=== PATIENT | female | born 1985 | race Caucasian/White ===

== ENCOUNTER → 2018-11-09 | Outpatient (CLI) | payer OTHER ==
[~2018-11-09] MED LIST: ACHD5005 PO; BENZ56AE TP; CYCL10TA9 PO; DCS100C PO; FRS325T PO; IBP600T1 PO; KETO10TA PO; OXYC-12 PO; PREN1TAB39 PO; TERC20CR5 VG
[2018-11-09 12:57] LABS: BASOPHILS % (AUTO) 0 % (0-10); EOSINOPHILS # (AUTO) 0.1 10^3/uL (0.0-0.3); EOSINOPHILS % (AUTO) 4 % (0-10); HEMATOCRIT 38 % (35-52); HEMOGLOBIN 12.8 G/DL (11.5-16.0); LYMPHOCYTES # (AUTO) 0.5 X 10^3 (1.0-4.0); LYMPHOCYTES % (AUTO) 16 % (12-44); MEAN CORPUSCULAR HEMOGLOBIN 30 PG (25-34); MEAN CORPUSCULAR HGB CONC 33 G/DL (32-36); MEAN CORPUSCULAR VOLUME 90 FL (80-99); MEAN PLATELET VOLUME 11.6 FL (7.4-10.4); MONOCYTES # (AUTO) 0.3 X 10^3 (0.0-1.0); MONOCYTES % (AUTO) 10 % (0-12); NEUTROPHILS % (AUTO) 70 % (42-75); PLATELET COUNT 185 10^3/uL (130-400); RED BLOOD COUNT 4.26 10^6/uL (4.35-5.85); RED CELL DISTRIBUTION WIDTH 12.4 % (10.0-14.5); WHITE BLOOD COUNT 2.9 10^3/uL (4.3-11.0)
[2018-11-09 13:21] LABS: ALANINE AMINOTRANSFERASE 18 U/L (0-55); ALBUMIN 4.4 GM/DL (3.2-4.5); ALKALINE PHOSPHATASE 81 U/L (40-136); BILIRUBIN,TOTAL 0.4 MG/DL (0.1-1.0); BUN/CREATININE RATIO 13; CALCIUM 8.9 MG/DL (8.5-10.1); CARBON DIOXIDE 19 MMOL/L (21-32); CHLORIDE 105 MMOL/L (98-107); CREATININE SERUM 0.86 MG/DL (0.60-1.30); GFR ESTIMATED > 60; GLUCOSE 88 MG/DL (70-105); POTASSIUM 3.9 MMOL/L (3.6-5.0); SODIUM 134 MMOL/L (135-145); TOTAL PROTEIN 7.7 GM/DL (6.4-8.2)
== END ==
LOC: LAB 12:33
PROVIDERS: ATTEND Family Medicine
DX: N39.0 Urinary tract infection, site not specified (principal); E86.0 Dehydration
CPT/HCPCS: 36415; 80053; 85025

== ENCOUNTER → 2019-02-25 | Outpatient (CLI) | payer OTHER ==
--- NOTE | 2019-02-25 13:57 | Diagnostic Imaging Report ---
INDICATION: survey. TECHNIQUE: Multiple real-time grayscale images were obtained over the gravid uterus. COMPARISON: None. FINDINGS: There is a single live fetus in a variable presentation. heart rate was recorded at 160 beats per minute. Placenta is anterior. Amniotic fluid volume is normal. Cervical length is approximately 5 cm. survey demonstrates kidneys, bladder, and stomach to be unremarkable. The brain is unremarkable. There is a four-chamber heart. There is a three-vessel cord with normal insertion. The spine is somewhat limited due to position. Biometrical measurements are as follows: Biparietal 4.74 cm, age 20 weeks 3 days. Head circumference 18.37 cm, age 20 weeks 6 days. Abdominal circumference 16.43 cm, age 21 weeks 4 days. Femur length 3.56 cm, age 21 weeks 2 days. Sonographic estimate age: 21 weeks 1 days. Sonographic estimated date of delivery: 07/07/2019. Estimated Weight: 412 gm (+/- 60 gm). LMP percentile: 30%. heart rate: 160 beats per minute. number: 1 of 1. IMPRESSION: 1. Single live IUP of approximately 21 weeks 1 day gestational age. Estimated date of confinement sonographically is 07/07/2019. 2. survey is unremarkable, although spine is somewhat limited due to position. Followup could be performed. Dictated by: Dictated on workstation # [id number]
== END ==
LOC: RAD 10:31
PROVIDERS: ATTEND Obstetrics & Gynecology
DX: Z36.89 Encounter for other specified antenatal screening (principal); Z3A.21 21 weeks gestation of pregnancy
CPT/HCPCS: 76805

== ENCOUNTER 2019-06-24 10:01 | Inpatient (IN) | payer OTHER ==
[2019-06-24] VITALS (53 sets, daily range): BP systolic 72–153; BP diastolic 62–98
[~2019-06-24] VITALS: Ht 172.7 cm; Wt 78.5 kg
--- NOTE | 2019-06-24 09:41 | NUR ---
CHAVA RONDON presented to unit via ambulatory from office for DEHYDRATION, abd pain. CHAVA RONDON weighed, gowned, voided, and to bed. EFHM and TOCO applied, VS taken. CHAVA RONDON oriented to bed controls, call light, TV, heat, and A/C controls.
[2019-06-24] MEDS ORDERED: ONDANSETRON 4 MG/2 ML (SDV) Z0FRAN IVP PRN (10:45)
[2019-06-24] MEDS ORDERED: LACTATED RINGERS 1,000 ML IV SCH ×2 (10:45→14:20)
[2019-06-24 11:05] LABS: BASOPHILS % (AUTO) 0 % (0-10); EOSINOPHILS % (AUTO) 0 % (0-10); HEMATOCRIT 37 % (35-52); HEMOGLOBIN 12.6 G/DL (11.5-16.0); LYMPHOCYTES # (AUTO) 1.7 X 10^3 (1.0-4.0); LYMPHOCYTES % (AUTO) 17 % (12-44); MEAN CORPUSCULAR HEMOGLOBIN 32 PG (25-34); MEAN CORPUSCULAR HGB CONC 34 G/DL (32-36); MEAN CORPUSCULAR VOLUME 95 FL (80-99); MEAN PLATELET VOLUME 13.2 FL (7.4-10.4); MONOCYTES # (AUTO) 0.6 X 10^3 (0.0-1.0); MONOCYTES % (AUTO) 6 % (0-12); NEUTROPHILS # (AUTO) 7.7 X 10^3 (1.8-7.8); NEUTROPHILS % (AUTO) 76 % (42-75); PLATELET COUNT 154 10^3/uL (130-400); RED CELL DISTRIBUTION WIDTH 13.8 % (10.0-14.5); WHITE BLOOD COUNT 10.1 10^3/uL (4.3-11.0)
[2019-06-24 11:25] LABS: ALANINE AMINOTRANSFERASE 46 U/L (0-55); ALBUMIN 3.1 GM/DL (3.2-4.5); ALKALINE PHOSPHATASE 159 U/L (40-136); BILIRUBIN,TOTAL 0.3 MG/DL (0.1-1.0); BUN/CREATININE RATIO 14; CARBON DIOXIDE 17 MMOL/L (21-32); CHLORIDE 111 MMOL/L (98-107); CREATININE SERUM 0.77 MG/DL (0.60-1.30); GFR ESTIMATED > 60; GLUCOSE 93 MG/DL (70-105); POTASSIUM 4.1 MMOL/L (3.6-5.0); SODIUM 137 MMOL/L (135-145); TOTAL PROTEIN 5.8 GM/DL (6.4-8.2); URIC ACID 5.1 MG/DL (2.6-7.2)
[2019-06-24] MEDS: D5 LR IV SOLUTION 1,000 ML IV SCH ×3 (11:45→22:36)
--- NOTE | 2019-06-24 11:47 | NUR ---
called to check on pt's status. update given. cont to monitor
--- NOTE | 2019-06-24 13:15 | NUR ---
here. monitor tracing reviewed. order received to admit for labor.
[2019-06-24] MEDS ORDERED: SUFENTA 0.6MCG/ML BUPIVA 0.125 100 ML ONE (13:29)
--- NOTE | 2019-06-24 13:36 | NUR ---
SABINE Carrillo here for epidural placement. Procedure explained, consent reviewed and signed by anesthesia. Questions answered to patient's satisfaction. Time out taken to verify correct patient/procedure. 1340- Patient up to side of bed, assisted into sitting position. Betadine prep done x3 and sterile drape applied. 1346-Local done, see anesthesia record. 1349-Test dose given, see anesthesia record for drug and dosage. 1347-Epidural catheter secured in place. Epidural placement complete. 1354- Assisted back into bed, monitors adjusted. Epidural dosed, see anesthesia record. Epidural of Sufenta/Bupvicaine @12cc/hr stated per pump. Patient tolerated procedure well.
[2019-06-24] MEDS: EPIDURAL (SUFENTA 0.6MCG/ML BUPIVA 0.125%) 100 ML BAG EPI SCH ×2 (13:56→20:51)
[2019-06-24] MEDS ORDERED: MISOPROSTOL 100 MCG (CYTOTEC) TAB ONE (14:06)
[2019-06-24] MEDS ORDERED: MISOPROSTOL 100 MCG (CYTOTEC) TAB PO ONE (14:15)
[2019-06-24] MEDS ORDERED: NALOXONE 0.4 MG/ML 1 ML (NARCAN) VIAL IV PRN ×2 (14:30)
[2019-06-24] MEDS ORDERED: ONDANSETRON 4 MG/2 ML (SDV) Z0FRAN IV PRN (14:30)
[2019-06-24] MEDS ORDERED: diphenhydrAMINE 50 MG/ML INJ (BENADRYL) IV PRN (14:30)
[2019-06-24] MEDS ORDERED: METOCLOPRAMIDE INJ 10 MG/2 ML (REGLAN) IV PRN (14:30)
[2019-06-24] MEDS ORDERED: OXYTOCIN/NORMAL SALINE 500 ML IV ONE (18:46)
[2019-06-24] MEDS ORDERED: OXYTOCIN/NORMAL SALINE 500 ML IV SCH ×2 (19:19→22:05)
[2019-06-24] MEDS ORDERED: MINERAL OIL CONCENTRATE 99.9% 15 ML UDC ONE (19:24)
[2019-06-24] MEDS ORDERED: LIDOCAINE/EPI 2% 1:200,00 (XYLOCAINE) 10 ML VIAL ONE (19:24)
--- NOTE | 2019-06-24 22:08 | OB Labor & Delivery Record ---
Vag Delivery Note Vag Delivery Note Date of Delivery: 06/24/19 Preoperative Diagnosis: Jennifer Sin is a (34 /Para 3 /2 ,Gestational Age 38 weeks with gestational hypertension and history of preeclampsia. Postoperative Diagnosis: Same Surgeon: FREDDIE HOFFMAN Banquet Food Server: [] Anesthesia: epidural Delivery Type: vagnal Findings: Viable female infant, apgars 9/9, weight 7#7oz Lacerations: none Intact placenta with 3 vessel cord. No nuchal cord, body cord or shoulder dystocia Estimated Blood Loss: 150 ml Complications: None Condition: Stable Description of Procedure: The patient is a 34 year old female who presented for induction of labor. She was admitted and informed consent was obtained. Her labor course was remarkable for AROM and augmentation. She progressed to complete dilatation and began to push. She was then set up for delivery. The infant's head was delivered atraumatically in the OA position. The shoulders and remainder of the infant's body were then delivered without difficulty. Upon delivery, the head was held below the level of the perineum and the mouth and nares were bulb suctioned. The cord was doubly clamped and cut and the was handed off to the pediatric staff. An intact placenta with 3-vessel cord delivered via Josh and there was found to be minimal bleeding.~ Vigorous fundal massage was performed and the fundus was found to be firm. IV oxytocin was given. Examination of the vagina and perineum revealed no laceration. Following the delivery, sponge, instrument and needle counts were correct. Mom and baby were both in stable condition in the labor suite. Vitals - Labs Vital Signs - I&O Vital Signs Date Time Temp Pulse Resp B/P (MAP) Pulse Ox O2 Delivery O2 Flow Rate FiO2 06/24/19 19:00 62 18 127/86 (100) 100 Room Air 06/24/19 18:45 56 18 113/62 (79) 100 Room Air 06/24/19 18:30 59 18 100 Room Air 06/24/19 18:15 62 18 116/79 (91) 99 Room Air 06/24/19 18:00 62 18 114/80 (91) 99 Room Air 06/24/19 17:45 53 18 110/78 (89) 98 Room Air 06/24/19 17:30 49 18 111/66 (81) 97 Room Air 06/24/19 17:15 58 18 116/71 (86) 98 Room Air 06/24/19 17:00 97.5 54 18 120/77 (91) 100 Room Air 06/24/19 16:45 49 18 123/72 (89) 100 Room Air 06/24/19 16:30 56 18 122/78 (93) 100 Room Air 06/24/19 16:15 55 18 120/76 (91) 100 Room Air 06/24/19 16:00 59 18 128/66 (86) 100 Room Air 06/24/19 15:45 65 18 122/87 (99) 100 Room Air 06/24/19 15:30 52 18 119/72 (88) 98 Room Air 06/24/19 15:15 53 18 117/73 (88) 99 Room Air 06/24/19 15:00 64 18 121/84 (96) 100 Room Air 06/24/19 14:45 64 18 121/84 (96) 100 Room Air 06/24/19 14:30 73 18 126/93 (104) 100 Room Air 06/24/19 14:15 84 18 122/72 (89) 98 Room Air 06/24/19 14:10 97 18 119/76 (90) 98 Room Air 06/24/19 14:05 91 18 122/77 (92) 98 Room Air 06/24/19 14:00 82 18 127/74 (91) 100 Room Air 06/24/19 13:55 98.1 77 18 123/74 (90) 99 Room Air 06/24/19 13:50 104 18 132/86 (101) 100 Room Air 06/24/19 13:45 67 18 129/86 (100) 100 Room Air 06/24/19 13:40 80 18 138/98 (111) 100 Room Air 06/24/19 13:20 76 18 130/82 (98) Room Air 06/24/19 12:50 69 18 125/82 (96) Room Air 06/24/19 12:20 69 18 125/87 (100) Room Air 06/24/19 11:50 86 18 134/82 (99) Room Air 06/24/19 11:35 65 18 121/77 (92) Room Air 06/24/19 09:50 98.2 74 18 132/85 (101) Room Air Labs Laboratory Tests 06/24/19 10:45: White Blood Count 10.1, Red Blood Count 3.91L, Hemoglobin 12.6, Hematocrit 37, Mean Corpuscular Volume 95, Mean Corpuscular Hemoglobin 32, Mean Corpuscular Hemoglobin Concent 34, Red Cell Distribution Width 13.8, Platelet Count 154, Mean Platelet Volume 13.2H, Neutrophils (%) (Auto) 76H, Lymphocytes (%) (Auto) 17, Monocytes (%) (Auto) 6, Eosinophils (%) (Auto) 0, Basophils (%) (Auto) 0, Ne utrophils # (Auto) 7.7, Lymphocytes # (Auto) 1.7, Monocytes # (Auto) 0.6, Eosinophils # (Auto) 0.0, Basophils # (Auto) 0.0, Sodium Level 137, Potassium Level 4.1, Chloride Level 111H, Carbon Dioxide Level 17L, Anion Gap 9, Blood Urea Nitrogen 11, Creatinine 0.77, Estimat Glomerular Filtration Rate > 60, BUN/Creatinine Ratio 14, Glucose Level 93, Uric Acid 5.1, Calcium Level 9.0, Corrected Calcium 9.7, Total Bilirubin 0.3, Aspartate Amino Transf (AST/SGOT) 71H, Alanine Aminotransferase (ALT/SGPT) 46, Alkaline Phosphatase 159H, Lactate Dehydrogenase 244H, Total Protein 5.8L, Albumin 3.1L FREDDIE HOFFMAN DO Jun 24, 2019 22:08
[2019-06-24] MEDS ORDERED: WITCH HAZEL(TUCKS) 40 EA JAR TOP PRN (22:15)
[2019-06-24] MEDS ORDERED: TETANUS,DIPTH,PERTUSS P/F (BOOSTRIX) 0.5 ML VIAL IM ONE (22:15)
[2019-06-24] MEDS ORDERED: BENZOCAINE/MENTHOL (DERMOPLAST) 56 ML CAN TP PRN (22:15)
[2019-06-24] MEDS ORDERED: MEASLES,MUMPS,RUBELLA 1 EA INJ SQ ONE (22:15)
[2019-06-25] VITALS: BP 120/72
[2019-06-25] MEDS: IBUPROFEN 600 MG (MOTRIN) TAB PO SCH ×4 (00:08→17:56)
[2019-06-25 00:15] VITALS: BP 121/70
[2019-06-25 01:30] VITALS: BP 120/71
[2019-06-25 04:02] VITALS: BP 110/72
[2019-06-25] MEDS: ACETAMINOPHEN 500 MG TAB (TYLENOL) PO SCH ×2 (04:02→13:04)
[2019-06-25] MEDS: D5 LR IV SOLUTION 1,000 ML IV SCH (05:10)
[2019-06-25 05:54] LABS: BASOPHILS % (AUTO) 0 % (0-10); EOSINOPHILS # (AUTO) 0.1 10^3/uL (0.0-0.3); EOSINOPHILS % (AUTO) 1 % (0-10); HEMATOCRIT 37 % (35-52); HEMOGLOBIN 12.2 G/DL (11.5-16.0); LYMPHOCYTES # (AUTO) 2.5 X 10^3 (1.0-4.0); LYMPHOCYTES % (AUTO) 19 % (12-44); MEAN CORPUSCULAR HEMOGLOBIN 32 PG (25-34); MEAN CORPUSCULAR HGB CONC 33 G/DL (32-36); MEAN CORPUSCULAR VOLUME 96 FL (80-99); MEAN PLATELET VOLUME 13.5 FL (7.4-10.4); MONOCYTES # (AUTO) 0.8 X 10^3 (0.0-1.0); MONOCYTES % (AUTO) 6 % (0-12); NEUTROPHILS # (AUTO) 9.9 X 10^3 (1.8-7.8); NEUTROPHILS % (AUTO) 74 % (42-75); PLATELET COUNT 118 10^3/uL (130-400); RED CELL DISTRIBUTION WIDTH 13.6 % (10.0-14.5); WHITE BLOOD COUNT 13.4 10^3/uL (4.3-11.0)
[2019-06-25] MEDS ORDERED: CATHETER FLUSH 10 ML SYR IV SCH (06:00)
[2019-06-25 06:24] LABS: ALANINE AMINOTRANSFERASE 27 U/L (0-55); ALBUMIN 2.5 GM/DL (3.2-4.5); ALKALINE PHOSPHATASE 124 U/L (40-136); BILIRUBIN,TOTAL 0.4 MG/DL (0.1-1.0); BUN/CREATININE RATIO 12; CARBON DIOXIDE 17 MMOL/L (21-32); CHLORIDE 113 MMOL/L (98-107); CREATININE SERUM 0.75 MG/DL (0.60-1.30); GFR ESTIMATED > 60; GLUCOSE 64 MG/DL (70-105); POTASSIUM 3.9 MMOL/L (3.6-5.0); SODIUM 138 MMOL/L (135-145); TOTAL PROTEIN 4.6 GM/DL (6.4-8.2)
[2019-06-25] MEDS ORDERED: PRENATAL VITAMIN 1 EA TAB PO SCH (07:00)
[2019-06-25] MEDS ORDERED: DOCUSATE SODIUM 100 MG (COLACE) CAP PO SCH (09:00)
[2019-06-25 09:45] VITALS: BP 113/67
--- NOTE | 2019-06-25 09:45 | NUR ---
Initial shift assessment completed, see interventions for further.
--- NOTE | 2019-06-25 12:19 | Postpartum Progress Note ---
Note Note Day # 1 s/p . LAbs much better next time. LFTs improving Subjective: Patient is without complaints. Ambulating, voiding. Tolerating a regular diet without nausea or vomiting. Normal lochia. Pain is well controlled with oral pain medications. breast feeding. Objective: Laboratory Tests Test 06/25/19 05:25 Range/Units White Blood Count 13.4 H 4.3-11.0 10^3/uL Red Blood Count 3.80 L 4.35-5.85 10^6/uL Hemoglobin 12.2 11.5-16.0 G/DL Hematocrit 37 35-52 % Mean Corpuscular Volume 96 80-99 FL Mean Corpuscular Hemoglobin 32 25-34 PG Mean Corpuscular Hemoglobin Concent 33 32-36 G/DL Red Cell Distribution Width 13.6 10.0-14.5 % Platelet Count 118 L 130-400 10^3/uL Mean Platelet Volume 13.5 H 7.4-10.4 FL Neutrophils (%) (Auto) 74 42-75 % Lymphocytes (%) (Auto) 19 12-44 % Monocytes (%) (Auto) 6 0-12 % Eosinophils (%) (Auto) 1 0-10 % Basophils (%) (Auto) 0 0-10 % Neutrophils # (Auto) 9.9 H 1.8-7.8 X 10^3 Lymphocytes # (Auto) 2.5 1.0-4.0 X 10^3 Monocytes # (Auto) 0.8 0.0-1.0 X 10^3 Eosinophils # (Auto) 0.1 0.0-0.3 10^3/uL Basophils # (Auto) 0.0 0.0-0.1 10^3/uL Sodium Level 138 135-145 MMOL/L Potassium Level 3.9 3.6-5.0 MMOL/L Chloride Level 113 H 98-107 MMOL/L Carbon Dioxide Level 17 L 21-32 MMOL/L Anion Gap 8 5-14 MMOL/L Blood Urea Nitrogen 9 7-18 MG/DL Creatinine 0.75 0.60-1.30 MG/DL Estimat Glomerular Filtration Rate > 60 BUN/Creatinine Ratio 12 Glucose Level 64 L 70-105 MG/DL Calcium Level 8.0 L 8.5-10.1 MG/DL Corrected Calcium 9.2 8.5-10.1 MG/DL Total Bilirubin 0.4 0.1-1.0 MG/DL Aspartate Amino Transf (AST/SGOT) 41 H 5-34 U/L Alanine Aminotransferase (ALT/SGPT) 27 0-55 U/L Alkaline Phosphatase 124 40-136 U/L Lactate Dehydrogenase 183 125-220 U/L Total Protein 4.6 L 6.4-8.2 GM/DL Albumin 2.5 L 3.2-4.5 GM/DL Laboratory Tests Test 06/25/19 05:25 Range/Units White Blood Count 13.4 H 4.3-11.0 10^3/uL Red Blood Count 3.80 L 4.35-5.85 10^6/uL Hemoglobin 12.2 11.5-16.0 G/DL Hematocrit 37 35-52 % Mean Corpuscular Volume 96 80-99 FL Mean Corpuscular Hemoglobin 32 25-34 PG Mean Corpuscular Hemoglobin Concent 33 32-36 G/DL Red Cell Distribution Width 13.6 10.0-14.5 % Platelet Count 118 L 130-400 10^3/uL Mean Platelet Volume 13.5 H 7.4-10.4 FL Neutrophils (%) (Auto) 74 42-75 % Lymphocytes (%) (Auto) 19 12-44 % Monocytes (%) (Auto) 6 0-12 % Eosinophils (%) (Auto) 1 0-10 % Basophils (%) (Auto) 0 0-10 % Neutrophils # (Auto) 9.9 H 1.8-7.8 X 10^3 Lymphocytes # (Auto) 2.5 1.0-4.0 X 10^3 Monocytes # (Auto) 0.8 0.0-1.0 X 10^3 Eosinophils # (Auto) 0.1 0.0-0.3 10^3/uL Basophils # (Auto) 0.0 0.0-0.1 10^3/uL Sodium Level 138 135-145 MMOL/L Potassium Level 3.9 3.6-5.0 MMOL/L Chloride Level 113 H 98-107 MMOL/L Carbon Dioxide Level 17 L 21-32 MMOL/L Anion Gap 8 5-14 MMOL/L Blood Urea Nitrogen 9 7-18 MG/DL Creatinine 0.75 0.60-1.30 MG/DL Estimat Glomerular Filtration Rate > 60 BUN/Creatinine Ratio 12 Glucose Level 64 L 70-105 MG/DL Calcium Level 8.0 L 8.5-10.1 MG/DL Corrected Calcium 9.2 8.5-10.1 MG/DL Total Bilirubin 0.4 0.1-1.0 MG/DL Aspartate Amino Transf (AST/SGOT) 41 H 5-34 U/L Alanine Aminotransferase (ALT/SGPT) 27 0-55 U/L Alkaline Phosphatase 124 40-136 U/L Lactate Dehydrogenase 183 125-220 U/L Total Protein 4.6 L 6.4-8.2 GM/DL Albumin 2.5 L 3.2-4.5 GM/DL Physical Exam: General - Alert and oriented, no apparent distress Abdomen - Soft, appropriately tender to palpation, non-distended, fundus firm at umbilicus Extremities - no edema, negative Michael's bilaterally [ Assessment: 1. post- day # 1, status post spontaneous vaginal delivery. Recovering well, hemodynamically stable 2. Gestational hypertension/preeclampsia, improving Plan: Routine care. Encourage breast feeding. Encourage ambulation. Ferrous sulfate supplementation. Plan for discharge soon Vitals - Labs Vital Signs - I&O Vital Signs Date Time Temp Pulse Resp B/P (MAP) Pulse Ox O2 Delivery O2 Flow Rate FiO2 06/25/19 09:45 98.3 72 18 113/67 (82) 97 Room Air 06/25/19 04:02 99.0 93 18 110/72 (85) 98 Room Air 06/25/19 01:30 98.5 60 18 120/71 (87) 98 Room Air 06/25/19 00:15 98.0 57 18 121/70 (87) Room Air 06/25/19 00:00 69 18 120/72 (88) Room Air 06/24/19 23:45 98.1 51 18 121/73 (89) Room Air 06/24/19 23:15 66 18 133/77 (95) Room Air 06/24/19 23:00 98.2 67 18 131/77 (95) Room Air 06/24/19 22:45 72 18 141/79 (99) Room Air 06/24/19 22:30 98.8 81 18 137/66 (89) 99 Room Air 06/24/19 22:15 82 18 133/75 (94) Room Air 06/24/19 22:00 97.4 73 18 138/69 (92) 99 Room Air 06/24/19 21:45 79 18 153/93 (113) 99 Room Air 06/24/19 21:30 64 18 131/94 (106) 99 Room Air 06/24/19 21:15 75 18 124/93 (103) 99 Room Air 06/24/19 21:05 97.2 70 18 136/89 (105) 99 Room Air 06/24/19 21:00 56 18 124/82 (96) 99 Room Air 06/24/19 20:55 51 18 116/71 (86) 99 Room Air 06/24/19 20:50 47 18 118/75 (89) 100 Room Air 06/24/19 20:45 53 18 126/82 (97) 100 Room Air 06/24/19 20:30 53 18 127/76 (93) 100 Room Air 06/24/19 20:15 59 18 125/80 (95) 99 Room Air 06/24/19 20:00 96 18 120/74 (89) 99 Room Air 06/24/19 19:45 53 18 119/74 (89) 98 Room Air 06/24/19 19:30 46 18 118/68 (85) 99 Room Air 06/24/19 19:15 97.8 53 18 131/72 (91) 100 Room Air 06/24/19 19:00 62 18 127/86 (100) 100 Room Air 06/24/19 18:45 56 18 113/62 (79) 100 Room Air 06/24/19 18:30 59 18 100 Room Air 06/24/19 18:15 62 18 116/79 (91) 99 Room Air 06/24/19 18:00 62 18 114/80 (91) 99 Room Air 06/24/19 17:45 53 18 110/78 (89) 98 Room Air 06/24/19 17:30 49 18 111/66 (81) 97 Room Air 06/24/19 17:15 58 18 116/71 (86) 98 Room Air 06/24/19 17:00 97.5 54 18 120/77 (91) 100 Room Air 06/24/19 16:45 49 18 123/72 (89) 100 Room Air 06/24/19 16:30 56 18 122/78 (93) 100 Room Air 06/24/19 16:15 55 18 120/76 (91) 100 Room Air 06/24/19 16:00 59 18 128/66 (86) 100 Room Air 06/24/19 15:45 65 18 122/87 (99) 100 Room Air 06/24/19 15:30 52 18 119/72 (88) 98 Room Air 06/24/19 15:15 53 18 117/73 (88) 99 Room Air 06/24/19 15:00 64 18 121/84 (96) 100 Room Air 06/24/19 14:45 64 18 121/84 (96) 100 Room Air 06/24/19 14:30 73 18 126/93 (104) 100 Room Air 06/24/19 14:15 84 18 122/72 (89) 98 Room Air 06/24/19 14:10 97 18 119/76 (90) 98 Room Air 06/24/19 14:05 91 18 122/77 (92) 98 Room Air 06/24/19 14:00 82 18 127/74 (91) 100 Room Air 06/24/19 13:55 98.1 77 18 123/74 (90) 99 Room Air 06/24/19 13:50 104 18 132/86 (101) 100 Room Air 06/24/19 13:45 67 18 129/86 (100) 100 Room Air 06/24/19 13:40 80 18 138/98 (111) 100 Room Air 06/24/19 13:20 76 18 130/82 (98) Room Air 06/24/19 12:50 69 18 125/82 (96) Room Air 06/24/19 12:20 69 18 125/87 (100) Room Air I & O 06/25/19 07:00 Intake Total 2900 ml Output Total 100 ml Balance 2800 ml Labs Laboratory Tests 06/25/19 05:25: White Blood Count 13.4H, Red Blood Count 3.80L, Hemoglobin 12.2, Hematocrit 37, Mean Corpuscular Volume 96, Mean Corpuscular Hemoglobin 32, Mean Corpuscular Hemoglobin Concent 33, Red Cell Distribution Width 13.6, Platelet Count 118L, Mean Platelet Volume 13.5H, Neutrophils (%) (Auto) 74, Lymphocytes (%) (Auto) 19, Monocytes (%) (Auto) 6, Eosinophils (%) (Auto) 1, Basophils (%) (Auto) 0, Neutrophils # (Auto) 9.9H, Lymphocytes # (Auto) 2.5, Monocytes # (Auto) 0.8, Eosinophils # (Auto) 0.1, Basophils # (Auto) 0.0, Sodium Level 138, Potassium Level 3.9, Chloride Level 113H, Carbon Dioxide Level 17L, Anion Gap 8, Blood Urea Nitrogen 9, Creatinine 0.75, Estimat Glomerular Filtration Rate > 60, BUN/Creatinine Ratio 12, Glucose Level 64L, Calcium Level 8.0L, Corrected Calcium 9.2, Total Bilirubin 0.4, Aspartate Amino Transf (AST/SGOT) 41H, Alanine Aminotransferase (ALT/SGPT) 27, Alkaline Phosphatase 124, Lactate Dehydrogenase 183, Total Protein 4.6L, Albumin 2.5L FREDDIE HOFFMAN DO Jun 25, 2019 12:19
--- NOTE | 2019-06-25 14:54 | Anesthesia-Regional Post-Op ---
Regional Patient Condition Mental Status: Alert, Oriented x3 Circulation: Same as Pre-Op Headache: Absent Sensation: Full Recovery Motor Block: Absent Post Op Complications Complications None Follow Up Care/Instructions Patient Instructions None needed. Anesthesia/Patient Condition Patient is doing well, no complaints, stable vital signs, no apparent adverse anesthesia problems. No complications reported per nursing. GARDENIA BOWLES CRNA Jun 25, 2019 14:54
--- NOTE | 2019-06-25 17:42 | NUR ---
called. may dismiss pt to rooming in status per request. dismissal order received.
[2019-06-25 17:56] VITALS: BP 118/76
--- NOTE | 2019-06-25 18:35 | NUR ---
stork meal served.
--- NOTE | 2019-06-29 10:54 | Physician Query-Final Dx ---
STACI HERNÁNDEZ 06/29/19 1054: Final Diagnosis Give Final Diagnosis Please give Final Diagnosis FREDDIE HOFFMAN DO 07/26/19 1145: Final Diagnosis Give Final Diagnosis 38 4/7 weeks preeclampsia/gestational hypertension vaginal delivery induction epidural STACI HERNÁNDEZ Jun 29, 2019 10:54 FREDDIE HOFFMAN DO Jul 26, 2019 11:45
--- OUTSIDE RECORDS SUMMARY | 2019-07-16 14:06 | XMS REPORT | CCD ---
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 Phone PP Unavailable CCM Unavailable Summary Purpose Interface Exchange Insurance Providers Payer name Policy type / Coverage type Covered alliance party ID Effective Begin Date Effective End Date Blue Cross Blue Shield [facility] Blue Cross/Blue Shield [id number] Unknown Family history Mother Diagnosis Age At Onset Diabetes mellitus Type 2 Unknown Father Diagnosis Age At Onset Hypercholesterolemia Unknown Myocardial infarction Unknown Hypertension Unknown Social History Social History Element Codes Description Effective Dates Marital status Unknown [place] 11/09/2018 Number of children Unknown 2 11/09/2018 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 smoker 11/09/2018 Alcohol history Unknown occasionally drinks alcohol 11/09/2018 Frequency of drinks SNOMED CT: 953592822 Drinks rarely 11/09/2018 Allergies, Adverse Reactions, Alerts Substance Reaction Codes Entered Date Inactivated Date Status * NO KNOWN DRUG ALLERGIES Unknown 11/09/2018 No Inactive Date Active Past Medical History Illness Codes Condition Status Onset Date Resolved Date Dehydration ICD-9: 276.51 ICD-10: E86.0 Active 11/09/2018 Unknown Dizziness and giddiness ICD-9: 780.4 ICD-10: R42 Active 11/09/2018 Unknown Dysuria ICD-9: 788.1 ICD-10: R30.0 Active 11/09/2018 Unknown Urinary tract infection, site not specified ICD-9: 599.0 ICD-10: N39.0 Active 11/09/2018 Unknown Problems Condition Codes Effective Dates Condition Status Dehydration ICD-9: 276.51 ICD-10: E86.0 11/09/2018 Active Dizziness and giddiness ICD-9: 780.4 ICD-10: R42 11/09/2018 Active Dysuria ICD-9: 788.1 ICD-10: R30.0 11/09/2018 Active Urinary tract infection, site not specified ICD-9: 599.0 ICD-10: N39.0 11/09/2018 Active Medications Medication Codes Instructions Start Date Stop Date Status Fill Instructions Keflex 500 mg capsule RxNorm: 224126 1 Capsule(s) PO QID 11/09/2018 11/15/2018 Active please dispense generic - have her get Accuflora 14billion units - take it twice daily while taking the antibiotic - thanks Medication Administered No Medication Administered data Immunizations No Immunization data Assessments Condition Codes Effective Dates Dizziness and giddiness ICD-10: R42 ICD-9: 780.4 11/09/2018 Dysuria ICD-10: R30.0 ICD-9: 788.1 11/09/2018 Urinary tract infection, site not specified ICD-10: N39.0 ICD-9: 599.0 11/09/2018 Dehydration ICD-10: E86.0 ICD-9: 276.51 11/09/2018 Reason For Visit Reason For Visit Effective Dates Notes rash 11/09/2018 Results Observation Observation Code Item Item Code Result Date Culture Urine 922805 URINE CULTURE SEE NOTES 11/13/2018 Urine Culture Ucult Complete >100,000 col/ml aerobic growth sent to ref lab 11/11/2018 Review of Systems System Result Effective Dates Constitutional recent illness 11/09/2018 Constitutional No chills 11/09/2018 Constitutional fatigue 11/09/2018 Constitutional fever 11/09/2018 Constitutional No insomnia 11/09/2018 Constitutional malaise 11/09/2018 Eyes No vision change 11/09/2018 Ears/Nose/Throat/Neck dizziness 11/09/2018 Ears/Nose/Throat/Neck No dysphagia 11/09/2018 Ears/Nose/Throat/Neck No headache 11/09/2018 Ears/Nose/Throat/Neck No hearing loss 11/09/2018 Ears/Nose/Throat/Neck No nasal allergies 11/09/2018 Ears/Nose/Throat/Neck No sore throat 11/09/2018 Cardiovascular No chest pain/pressure 11/09/2018 Cardiovascular No dyspnea 11/09/2018 Cardiovascular No edema 11/09/2018 Cardiovascular No exercise intolerance 11/09/2018 Cardiovascular fatigue 11/09/2018 Cardiovascular No near-syncope/dizziness 11/09/2018 Respiratory No chest tightness 11/09/2018 Respiratory No cough 11/09/2018 Respiratory No dyspnea 11/09/2018 Respiratory No pedal edema 11/09/2018 Gastrointestinal No abdominal pain 11/09/2018 Gastrointestinal No constipation 11/09/2018 Gastrointestinal No diarrhea 11/09/2018 Gastrointestinal No gastroesophageal reflux 11/09/2018 Gastrointestinal No nausea 11/09/2018 Genitourinary/Nephrology No dysuria 11/09/2018 Genitourinary/Nephrology No nocturia 11/09/2018 Genitourinary/Nephrology No urinary incontinence 11/09/2018 Musculoskeletal No stiffness 11/09/2018 Musculoskeletal No swelling 11/09/2018 Musculoskeletal No muscle weakness 11/09/2018 Musculoskeletal No myalgias 11/09/2018 Dermatologic No rash 11/09/2018 Dermatologic No sores 11/09/2018 Neurologic dizziness 11/09/2018 Neurologic No headache 11/09/2018 Psychiatric No anxiety 11/09/2018 Psychiatric No depression 11/09/2018 Ears/Nose/Throat/Neck No sinus congestion 11/09/2018 Physical Exam Exam Name System Name Item Name Status Result Effective Dates Notes Full Exam - General 1994 Constitutional general appearance Development: well developed 11/09/2018 None Full Exam - General 1994 Constitutional general appearance Development: appears stated age 1211/09/2018 None Full Exam - General 1994 Constitutional general appearance Hygiene/Attention to Grooming: good hygiene 11/09/2018 None Full Exam - General 1994 Eyes conjunctiva/eyelids Overall: conjunctiva clear 11/09/2018 None Full Exam - General 1994 Eyes conjunctiva/eyelids Overall: cornea clear 11/09/2018 None Full Exam - General 1994 Eyes conjunctiva/eyelids Overall: eyelids normal 11/09/2018 None Full Exam - General 1994 Eyes pupils and irises Overall: pupils equal, round, reactive to light and accomodation 11/09/2018 None Full Exam - General 1994 Ears/Nose/Throat otoscopic exam Overall: external auditory canals clear 11/09/2018 None Full Exam - General 1994 Ears/Nose/Throat otoscopic exam Overall: tympanic membranes clear 11/09/2018 None Full Exam - General 1994 Ears/Nose/Throat lips/teeth/gingiva Overall: benign lips 11/09/2018 None Full Exam - General 1994 Ears/Nose/Throat lips/teeth/gingiva Overall: normal dentition 11/09/2018 None Full Exam - General 1994 Ears/Nose/Throat oral cavity/pharynx/larynx Overall: oral mucosa clear 11/09/2018 None Full Exam - General 1994 Ears/Nose/Throat oral cavity/pharynx/larynx Overall: hypopharynx benign 11/09/2018 None Full Exam - General 1994 Ears/Nose/Throat oral cavity/pharynx/larynx Overall: no masses 11/09/2018 None Full Exam - General 1994 Respiratory auscultation Overall: breath sounds clear bilaterally 11/09/2018 None Full Exam - General 1994 Respiratory respiratory effort/rhythm Overall: no retractions 11/09/2018 None Full Exam - General 1994 Respiratory respiratory effort/rhythm Overall: normal rate 11/09/2018 None Full Exam - General 1994 Cardiovascular extremities Overall: no clubbing 11/09/2018 None Full Exam - General 1994 Cardiovascular auscultation of heart Overall: regular rate 11/09/2018 None Full Exam - General 1994 Cardiovascular auscultation of heart Overall: normal heart sounds 11/09/2018 None Full Exam - General 1994 Abdomen abdominal exam Overall: no tenderness 11/09/2018 None Full Exam - General 1994 Abdomen abdominal exam Overall: normal bowel sounds 11/09/2018 None Full Exam - General 1994 Musculoskeletal spine, ribs and pelvis Overall: spine benign 11/09/2018 None Full Exam - General 1994 Musculoskeletal spine, ribs and pelvis Overall: sacroiliac joint benign 11/09/2018 None Full Exam - General 1994 Musculoskeletal spine, ribs and pelvis Overall: good posture 11/09/2018 None Full Exam - General 1994 Musculoskeletal head and neck Overall: head atraumatic 11/09/2018 None Full Exam - General 1994 Musculoskeletal head and neck Overall: cervical spine benign 11/09/2018 None Full Exam - General 1994 Neurologic cranial nerves Overall: crainial nerves 2 - 12 grossly intact 11/09/2018 None Full Exam - General 1994 Psychiatric orientation/consciousness Overall: oriented to person, place and time 11/09/2018 None Full Exam - General 1994 Psychiatric mood and affect Overall: normal mood and affect 11/09/2018 None Full Exam - General 1994 Ears/Nose/Throat oral cavity/pharynx/larynx Oropharynx: erythema 11/09/2018 None Full Exam - General 1994 Lymphatic neck nodes Overall: shotty lymphadenopathy 11/09/2018 None Full Exam - General 1994 Integument inspection of skin Rash/Lesions: maculopapular rash across abdomen, chest , to upper thighs 11/09/2018 None Procedures Procedure Codes Date URINALYSIS NONAUTO W/O SCOPE CPT-4: 03967 11/09/2018 Vital Signs Date Vital 11/09/2018 Blood Pressure 1: 120/70 Code: 8480-6 BMI: 23.8 Code: 29804-4 Heart Rate 1: 100 bpm Height: 5'7" SpO2: 97% Weight: 152 lbs Functional Status No Functional Status data History of Present Illness Symptom Name Status Result Effective Date Notes Location in the RLQ 11/09/2018 None Location in the LLQ 11/09/2018 None Quality aching 11/09/2018 None Onset of Symptom 5 days ago 11/09/2018 None Limitation on Activities moderately limits activities 11/09/2018 None Triggers no known associated factors 11/09/2018 None Pertinent Findings fever 11/09/2018 last fever this morning of 101F Advance Directives No Advance Directive data Encounters Encounter Performer Location Codes Date () OFFICE VISIT, [facility] - LEVEL 3 Diagnosis: Dysuria[ICD10: R30.0] Diagnosis: Urinary tract infection, site not specified[ICD10: N39.0] Diagnosis: Dehydration[ICD10: E86.0] Diagnosis: Dizziness and giddiness[ICD10: R42] Ninfa Grullon MD, [facility] CPT- 4: 70347 11/09/2018 Plan of Care Planned Activity Notes Codes Status Date Visit Plan: UTI - pt with positive urinalysis - culture sent if appropriate. Antibiotic electronically prescribed to pt's pharmacy of choice. Pt to call if symptoms do not improve. URI - Pt advised to increase flui ds, vitamin C. Discussed natural and expected course of this diagnosis and need to alert me if symptoms do not follow expected course, or if any worse. RX sent to patient's pharmacy. keflex 500mg qid sent to pharmacy - probiotic as well. pt to go to hospital for labs. dehydration - push fluids 11/09/2018 Appointment: Ninfa Grullon WPtel: [address] [place], [place] [id number] New Patient 11/09/2018 Patient Education: Patient Medication Summary Completed 11/09/2018 Patient Education: Patient Medication Summary Completed 11/09/2018 Instructions Comment . UTI - pt with positive urinalysis - culture sent if appropriate. Antibiotic electronically prescribed to pt's pharmacy of choice. Pt to call if symptoms do not improve. URI - Pt advised to increase fluids, vitamin C. Discussed natural and expected course of this diagnosis and need to alert me if symptoms do not follow expected course, or if any worse. RX sent to patient's pharmacy. keflex 500mg qid sent to pharmacy - probiotic as well. pt to go to hospital for labs. dehydration - push fluids
--- OUTSIDE RECORDS SUMMARY | 2019-07-16 14:06 | XMS REPORT | CCD ---
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 Phone PP Unavailable CCM Unavailable Summary Purpose Interface Exchange Insurance Providers Payer name Policy type / Coverage type Covered democrat ID Effective Begin Date Effective End Date Blue Cross Blue Shield [facility] Blue Cross/Blue Shield [id number] Unknown Family history Mother Diagnosis Age At Onset Diabetes mellitus Type 2 Unknown Father Diagnosis Age At Onset Hypercholesterolemia Unknown Myocardial infarction Unknown Hypertension Unknown Social History Social History Element Codes Description Effective Dates Marital status Unknown [place] 11/09/2018 Number of children Unknown 2 11/09/2018 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 11/09/2018 Alcohol history Unknown occasionally drinks alcohol 11/09/2018 Frequency of drinks SNOMED CT: 055271661 Drinks rarely 11/09/2018 Allergies, Adverse Reactions, Alerts [...] Fill Instructions Keflex 500 mg capsule RxNorm: 208686 1 Capsule(s) PO QID 11/09/2018 11/15/2018 Active [...] Observation Code Item Item Code Result Date Urine Culture Ucult Complete >100,000 col/ml aerobic [...] Codes Date URINALYSIS NONAUTO W/O SCOPE CPT-4: 47685 11/09/2018 Vital Signs Date Vital 11/09/2018 Blood Pressure 1: 120/70 Code: 8480-6 BMI: 23.8 Code: 80247-2 Heart Rate 1: 100 bpm Height: 5'7" [...] Performer Location Codes Date () OFFICE VISIT, [facility] - LEVEL 3 Diagnosis: Dysuria[ICD10: R30.0] Diagnosis: Urinary tract infection, site not specified[ICD10: N39.0] Diagnosis: Dehydration[ICD10: E86.0] Diagnosis: Dizziness and giddiness[ICD10: R42] Ninfa Grullon MD, [facility] CPT- 4: 08148 11/09/2018 Plan of Care Planned Activity Notes [...] push fluids 11/09/2018 Appointment: Ninfa Grullon WPtel: [address] [place], [place] [id number] New Patient 11/09/2018 Patient Education: Patient Medication [...]
--- OUTSIDE RECORDS SUMMARY | 2019-07-16 14:07 | XMS REPORT | Continuity of Care Document ---
Author Organization Unknown Address Unknown Phone Unavailable Allergies Active Description Code Type Severity Reaction Onset Reported/Identified Relationship to Patient Clinical Status Yes No Known Drug Allergies [id number] Drug Allergy Unknown N/A 03/29/2012 Medications There is no data. Problems Date Dx Coded Attending Type Code Diagnosis Diagnosed By 12/21/2011 Ot 644.03 03/29/2012 Ot 644.03 04/20/2012 Ot 642.41 04/20/2012 Ot 664.11 04/20/2012 Ot V27.0 07/31/2013 SHANIA JANE DO Ot 642.33 08/07/2013 FREDDIE HOFFMAN DO Ot 642.31 08/07/2013 FREDDIE HOFFMAN DO Ot 642.41 08/07/2013 FREDDIE HOFFMAN DO Ot 652.81 08/07/2013 FREDDIE HOFFMAN DO Ot V27.0 10/29/2013 SHANIA JANE DO Ot 791.0 10/03/2014 Ot 462 10/03/2014 Ot 791.0 10/11/2014 Ot 462 10/11/2014 Ot 791.0 03/08/2016 ANAND LAIRD DO Ot F41.9 ANXIETY DISORDER, UNSPECIFIED 03/08/2016 ANAND LAIRD DO Ot S46.812A STRAIN OF MUSC/FASC/TEND AT LDR/UP ARM 03/08/2016 ANAND LAIRD DO Ot X58.XXXA EXPOSURE TO OTHER SPECIFIED FACTORS, INI 03/08/2016 ANAND LAIRD DO Ot Y92.[address] [facility] NON-[facility]IT[facility] (PRIVATE 03/08/2016 AANND LAIRD DO Ot Y93.84 ACTIVITY, SLEEPING 03/08/2016 ANAND LAIRD DO Ot Y99.8 OTHER EXTERNAL CAUSE STATUS 03/15/2016 ANAND LAIRD DO Ot F41.9 ANXIETY DISORDER, UNSPECIFIED 03/15/2016 ANAND LAIRD DO Ot S46.812A STRAIN OF MUSC/FASC/TEND AT SHLDR/UP ARM 03/15/2016 ANAND LAIRD DO Ot X58.XXXA EXPOSURE TO OTHER SPECIFIED FACTORS, INI 03/15/2016 ANAND LAIRD DO Ot Y92.[address] IN [facility] NON-INSTIT[facility] (PRIVATE 03/15/2016 ANAND LAIRD DO Ot Y93.84 ACTIVITY, SLEEPING 03/15/2016 ANAND LAIRD DO Ot Y99.8 OTHER EXTERNAL CAUSE STATUS 03/15/2016 ANDRADE SYKES MD Ot E28.2 POLYCYSTIC OVARIAN SYNDROME 03/15/2016 ANDRADE SYKES MD Ot R07.9 CHEST PAIN, UNSPECIFIED 03/15/2016 ANDRADE SYKES MD Ot R42 DIZZINESS AND GIDDINESS 03/25/2016 ANDRADE SYKES MD Ot E28.2 POLYCYSTIC OVARIAN SYNDROME 03/25/2016 ANDRADE SYKES MD Ot R07.9 CHEST PAIN, UNSPECIFIED 03/25/2016 ANDRADE SYKES MD Ot R42 DIZZINESS AND GIDDINESS 04/12/2016 ANDRADE SYKES MD Ot E28.2 POLYCYSTIC OVARIAN SYNDROME 04/12/2016 ANDRADE SYKES MD Ot R07.9 CHEST PAIN, UNSPECIFIED 04/12/2016 ANDRADE SYKES MD Ot R42 DIZZINESS AND GIDDINESS 12/27/2016 ANDRADE SYKES MD Ot E28.2 POLYCYSTIC OVARIAN SYNDROME 12/27/2016 ANDRADE SYKES MD Ot R07.9 CHEST PAIN, UNSPECIFIED 12/27/2016 ANDRADE SYKES MD Ot R42 DIZZINESS AND GIDDINESS 12/27/2016 ANDRADE SYKES MD Ot E28.2 POLYCYSTIC OVARIAN SYNDROME 12/27/2016 ANDRADE SYKES MD Ot R07.9 CHEST PAIN, UNSPECIFIED 12/27/2016 ANDRADE SYKES MD Ot R42 DIZZINESS AND GIDDINESS 01/21/2017 ANDRADE SYKES MD Ot E28.2 POLYCYSTIC OVARIAN SYNDROME 01/21/2017 ANDRADE SYKES MD Ot R07.9 CHEST PAIN, UNSPECIFIED 01/21/2017 ANDRADE SYKSE MD Ot R42 DIZZINESS AND GIDDINESS 01/21/2017 ANDRADE SYKES MD Ot E28.2 POLYCYSTIC OVARIAN SYNDROME 01/21/2017 ONEL KAUR, ANDRADE Emanuel Ot R07.9 CHEST PAIN, UNSPECIFIED 01/21/2017 ANDRADE SYKES MD Ot R42 DIZZINESS AND GIDDINESS 01/28/2017 ANDRADE SYKES MD Ot E28.2 POLYCYSTIC OVARIAN SYNDROME 01/28/2017 ANDRADE SYKES MD Ot R07.9 CHEST PAIN, UNSPECIFIED 01/28/2017 ANDRADE SYKES MD Ot R42 DIZZINESS AND GIDDINESS 01/28/2017 ANDRADE SYKES MD Ot E28.2 POLYCYSTIC OVARIAN SYNDROME 01/28/2017 ANDRADE SYKES MD Ot R07.9 CHEST PAIN, UNSPECIFIED 01/28/2017 ANDRADE SYKES MD Ot R42 DIZZINESS AND GIDDINESS 03/17/2017 ANDRADE SYKES MD Ot E28.2 POLYCYSTIC OVARIAN SYNDROME 03/17/2017 ANDRADE SYKES MD Ot R07.9 CHEST PAIN, UNSPECIFIED 03/17/2017 ANDRADE SYKES MD Ot R42 DIZZINESS AND GIDDINESS 03/17/2017 ANDRADE SYKES MD Ot E28.2 POLYCYSTIC OVARIAN SYNDROME 03/17/2017 ANDRADE SYKES MD Ot R07.9 CHEST PAIN, UNSPECIFIED 03/17/2017 ANDRADE SYKES MD Ot R42 DIZZINESS AND GIDDINESS 11/09/2018 ANDRADE SYKES MD Ot E28.2 POLYCYSTIC OVARIAN SYNDROME 11/09/2018 ANDRADE SYKES MD Ot R07.9 CHEST PAIN, UNSPECIFIED 11/09/2018 ANDRADE SYKES MD Ot R42 DIZZINESS AND GIDDINESS 11/09/2018 ANDRADE SYKES MD Ot E28.2 POLYCYSTIC OVARIAN SYNDROME 11/09/2018 ANDRADE SYKES MD Ot R07.9 CHEST PAIN, UNSPECIFIED 11/09/2018 ANDRADE SYKES MD Ot R42 DIZZINESS AND GIDDINESS 11/13/2018 KAILYN ARRINGTON MD Ot E86.0 DEHYDRATION 11/13/2018 KAILYN ARRINGTON MD Ot N39.0 URINARY TRACT INFECTION, SITE NOT SPECIF 02/26/2019 FREDDIE HOFFMAN DO Ot Z36.89 ENCOUNTER FOR OTHER SPECIFIED 02/26/2019 FREDDIE HOFFMAN DO Ot Z3A.21 21 WEEKS GESTATION OF 03/03/2019 HOFFMANGodfrey SPEAR FREDDIE C Ot Z36.89 ENCOUNTER FOR OTHER SPECIFIED 03/03/2019 HOFFMAN DO FREDDIE C Ot Z3A.21 21 WEEKS GESTATION OF 05/31/2019 ANDRADE SYKES MD Ot E28.2 POLYCYSTIC OVARIAN SYNDROME 05/31/2019 ANDRADE SYKES MD Ot R07.9 CHEST PAIN, UNSPECIFIED 05/31/2019 ANDRADE SYKES MD Ot R42 DIZZINESS AND GIDDINESS 05/31/2019 ANDRADE SYKES MD Ot E28.2 POLYCYSTIC OVARIAN SYNDROME 05/31/2019 ANDRADE SKYES MD Ot R07.9 CHEST PAIN, UNSPECIFIED 05/31/2019 ANDRADE SYKES MD Ot R42 DIZZINESS AND GIDDINESS 05/31/2019 NURY KAUR, KAILYN A Ot E86.0 DEHYDRATION 05/31/2019 NURY KAUR, KAILYN A Ot N39.0 URINARY TRACT INFECTION, SITE NOT SPECIF 05/31/2019 YASMIN SPEAR FREDDIE C Ot Z36.89 ENCOUNTER FOR OTHER SPECIFIED 05/31/2019 HOFFMAN DO FREDDIE C Ot Z3A.21 21 WEEKS GESTATION OF 06/24/2019 ANDRADE SYKES MD Ot E28.2 POLYCYSTIC OVARIAN SYNDROME 06/24/2019 ANDRADE SYKES MD Ot R07.9 CHEST PAIN, UNSPECIFIED 06/24/2019 ANDRADE SYKES MD Ot R42 DIZZINESS AND GIDDINESS 06/24/2019 ANDRADE SYKES MD Ot E28.2 POLYCYSTIC OVARIAN SYNDROME 06/24/2019 ANDRADE SYKES MD Ot R07.9 CHEST PAIN, UNSPECIFIED 06/24/2019 ANDRADE SYKES MD Ot R42 DIZZINESS AND GIDDINESS 06/24/2019 NURY KAUR, KAILYN A Ot E86.0 DEHYDRATION 06/24/2019 KAILYN ARRINGTON MD A Ot N39.0 URINARY TRACT INFECTION, SITE NOT SPECIF 06/24/2019 YASMIN SPEAR FREDDIE C Ot Z36.89 ENCOUNTER FOR OTHER SPECIFIED 06/24/2019 HOFFMAN DO FREDDIE C Ot Z3A.21 21 WEEKS GESTATION OF 06/24/2019 ANDRADE SYKES MD Ot E28.2 POLYCYSTIC OVARIAN SYNDROME 06/24/2019 ANDRADE SYKES MD Ot R07.9 CHEST PAIN, UNSPECIFIED 06/24/2019 ANDRADE SYKES MD Ot R42 DIZZINESS AND GIDDINESS 06/24/2019 ANDRADE SYKES MD Ot E28.2 POLYCYSTIC OVARIAN SYNDROME 06/24/2019 ANDRADE SYKES MD Ot R07.9 CHEST PAIN, UNSPECIFIED 06/24/2019 ANDRADE SYKES MD Ot R42 DIZZINESS AND GIDDINESS 06/24/2019 KAILYN ARRINGTON MD Ot E86.0 DEHYDRATION 06/24/2019 KAILYN ARRINGTON MD Ot N39.0 URINARY TRACT INFECTION, SITE NOT SPECIF 06/24/2019 HOFFMAN DO FREDDIE C Ot Z36.89 ENCOUNTER FOR OTHER SPECIFIED 06/24/2019 HOFFMAN DO FREDDIE C Ot Z3A.21 21 WEEKS GESTATION OF 06/25/2019 YASMIN SPEAR FREDDIE C Ot Z33.1 STATE, INCIDENTAL 06/27/2019 ANDRADE SYKES MD Ot E28.2 POLYCYSTIC OVARIAN SYNDROME 06/27/2019 ANDRADE SYKES MD Ot R07.9 CHEST PAIN, UNSPECIFIED 06/27/2019 ANDRADE SYKES MD Ot R42 DIZZINESS AND GIDDINESS 06/27/2019 ANDRADE SYKES MD Ot E28.2 POLYCYSTIC OVARIAN SYNDROME 06/27/2019 ANDRADE SYKES MD Ot R07.9 CHEST PAIN, UNSPECIFIED 06/27/2019 ANDRADE SYKES MD Ot R42 DIZZINESS AND GIDDINESS 06/27/2019 KAILYN ARRINGTON MD Ot E86.0 DEHYDRATION 06/27/2019 KAILYN ARRINGTON MD Ot N39.0 URINARY TRACT INFECTION, SITE NOT SPECIF 06/27/2019 HOFFMAN DO FREDDIE C Ot Z36.89 ENCOUNTER FOR OTHER SPECIFIED 06/27/2019 YASMIN SPEAR FREDDIE C Ot Z3A.21 21 WEEKS GESTATION OF Procedures There is no data. Results Test Result Range Complete blood count (CBC) with automated white blood cell (WBC) differential - 11/09/18 12:49 Blood leukocytes automated count (number/volume) 2.9 10*3/uL 4.3-11.0 Blood erythrocytes automated count (number/volume) 4.26 10*6/uL 4.35-5.85 Venous blood hemoglobin measurement (mass/volume) 12.8 g/dL 11.5-16.0 Blood hematocrit (volume fraction) 38 % 35-52 Automated erythrocyte mean corpuscular volume 90 [foz_us] 80-99 Automated erythrocyte mean corpuscular hemoglobin (mass per erythrocyte) 30 pg 25-34 Automated erythrocyte mean corpuscular hemoglobin concentration measurement (mass/volume) 33 g/dL 32-36 Automated erythrocyte distribution width ratio 12.4 % 10.0- 14.5 Automated blood platelet count (count/volume) 185 10*3/uL 130-400 Automated blood platelet mean volume measurement 11.6 [foz_us] 7.4-10.4 Automated blood neutrophils/100 leukocytes 70 % 42-75 Automated blood lymphocytes/100 leukocytes 16 % 12-44 Blood monocytes/100 leukocytes 10 % 0-12 Automated blood eosinophils/100 leukocytes 4 % 0-10 Automated blood basophils/100 leukocytes 0 % 0-10 Blood neutrophils automated count (number/volume) 2.0 10*3 1.8-7.8 Blood lymphocytes automated count (number/volume) 0.5 10*3 1.0-4.0 Blood monocytes automated count (number/volume) 0.3 10*3 0.0- 1.0 Automated eosinophil count 0.1 10*3/uL 0.0-0.3 Automated blood basophil count (count/volume) 0.0 10*3/uL 0.0-0.1 Comprehensive metabolic panel - 11/09/18 12:49 Serum or plasma sodium measurement (moles/volume) 134 mmol/L 135-145 Serum or plasma potassium measurement (moles/volume) 3.9 mmol/L 3.6-5.0 Serum or plasma chloride measurement (moles/volume) 105 mmol/L 98-107 Carbon dioxide 19 mmol/L 21-32 Serum or plasma anion gap determination (moles/volume) 10 mmol/L 5-14 Serum or plasma urea nitrogen measurement (mass/volume) 11 mg/dL 7-18 Serum or plasma creatinine measurement (mass/volume) 0.86 mg/dL 0.60-1.30 Serum or plasma urea nitrogen/creatinine mass ratio 13 NRG Serum or plasma creatinine measurement with calculation of estimated glomerular filtration rate > NRG Serum or plasma glucose measurement (mass/volume) 88 mg/dL 70-105 Serum or plasma calcium measurement (mass/volume) 8.9 mg/dL 8.5-10.1 Serum or plasma total bilirubin measurement (mass/volume) 0.4 mg/dL 0.1-1.0 Serum or plasma alkaline phosphatase measurement (enzymatic activity/volume) 81 U/L 40-136 Serum or plasma aspartate aminotransferase measurement (enzymatic activity/volume) 27 U/L 5-34 Serum or plasma alanine aminotransferase measurement (enzymatic activity/volume) 18 U/L 0-55 Serum or plasma protein measurement (mass/volume) 7.7 g/dL 6.4-8.2 Serum or plasma albumin measurement (mass/volume) 4.4 g/dL 3.2-4.5 CALCIUM CORRECTED 8.6 mg/dL 8.5-10.1 [id number] - 06/24/19 10:45 [id number] SPECIMEN AVAILABLE BANNER Complete blood count (CBC) with automated white blood cell (WBC) differential - 06/24/19 10:45 Blood leukocytes automated count (number/volume) 10.1 10*3/uL 4.3-11.0 Blood erythrocytes automated count (number/volume) 3.91 10*6/uL 4.35-5.85 Venous blood hemoglobin measurement (mass/volume) 12.6 g/dL 11.5-16.0 Blood hematocrit (volume fraction) 37 % 35-52 Automated erythrocyte mean corpuscular volume 95 [foz_us] 80-99 Automated erythrocyte mean corpuscular hemoglobin (mass per erythrocyte) 32 pg 25-34 Automated erythrocyte mean corpuscular hemoglobin concentration measurement (mass/volume) 34 g/dL 32-36 Automated erythrocyte distribution width ratio 13.8 % 10.0- 14.5 Automated blood platelet count (count/volume) 154 10*3/uL 130-400 Automated blood platelet mean volume measurement 13.2 [foz_us] 7.4-10.4 Automated blood neutrophils/100 leukocytes 76 % 42-75 Automated blood lymphocytes/100 leukocytes 17 % 12-44 Blood monocytes/100 leukocytes 6 % 0-12 Automated blood eosinophils/100 leukocytes 0 % 0-10 Automated blood basophils/100 leukocytes 0 % 0-10 Blood neutrophils automated count (number/volume) 7.7 10*3 1.8-7.8 Blood lymphocytes automated count (number/volume) 1.7 10*3 1.0-4.0 Blood monocytes automated count (number/volume) 0.6 10*3 0.0- 1.0 Automated eosinophil count 0.0 10*3/uL 0.0-0.3 Automated blood basophil count (count/volume) 0.0 10*3/uL 0.0-0.1 Comprehensive metabolic panel - 06/24/19 10:45 Serum or plasma sodium measurement (moles/volume) 137 mmol/L 135-145 Serum or plasma potassium measurement (moles/volume) 4.1 mmol/L 3.6-5.0 Serum or plasma chloride measurement (moles/volume) 111 mmol/L 98-107 Carbon dioxide 17 mmol/L 21-32 Serum or plasma anion gap determination (moles/volume) 9 mmol/L 5-14 Serum or plasma urea nitrogen measurement (mass/volume) 11 mg/dL 7-18 Serum or plasma creatinine measurement (mass/volume) 0.77 mg/dL 0.60-1.30 Serum or plasma urea nitrogen/creatinine mass ratio 14 NRG Serum or plasma creatinine measurement with calculation of estimated glomerular filtration rate > NRG Serum or plasma glucose measurement (mass/volume) 93 mg/dL 70-105 Serum or plasma calcium measurement (mass/volume) 9.0 mg/dL 8.5-10.1 Serum or plasma total bilirubin measurement (mass/volume) 0.3 mg/dL 0.1-1.0 Serum or plasma alkaline phosphatase measurement (enzymatic activity/volume) 159 U/L 40-136 Serum or plasma aspartate aminotransferase measurement (enzymatic activity/volume) 71 U/L 5-34 Serum or plasma alanine aminotransferase measurement (enzymatic activity/volume) 46 U/L 0-55 Serum or plasma protein measurement (mass/volume) 5.8 g/dL 6.4-8.2 Serum or plasma albumin measurement (mass/volume) 3.1 g/dL 3.2-4.5 CALCIUM CORRECTED 9.7 mg/dL 8.5-10.1 Serum or plasma uric acid measurement (mass/volume) - 06/24/19 10:45 Serum or plasma uric acid measurement (mass/volume) 5.1 mg/dL 2.6-7.2 Serum ragweed IgE antibody assay - 06/24/19 10:45 Serum ragweed IgE antibody assay 244 U/L 125-220 Complete blood count (CBC) with automated white blood cell (WBC) differential - 06/25/19 05:25 Blood leukocytes automated count (number/volume) 13.4 10*3/uL 4.3-11.0 Blood erythrocytes automated count (number/volume) 3.80 10*6/uL 4.35-5.85 Venous blood hemoglobin measurement (mass/volume) 12.2 g/dL 11.5-16.0 Blood hematocrit (volume fraction) 37 % 35-52 Automated erythrocyte mean corpuscular volume 96 [foz_us] 80-99 Automated erythrocyte mean corpuscular hemoglobin (mass per erythrocyte) 32 pg 25-34 Automated erythrocyte mean corpuscular hemoglobin concentration measurement (mass/volume) 33 g/dL 32-36 Automated erythrocyte distribution width ratio 13.6 % 10.0- 14.5 Automated blood platelet count (count/volume) 118 10*3/uL 130-400 Automated blood platelet mean volume measurement 13.5 [foz_us] 7.4-10.4 Automated blood neutrophils/100 leukocytes 74 % 42-75 Automated blood lymphocytes/100 leukocytes 19 % 12-44 Blood monocytes/100 leukocytes 6 % 0-12 Automated blood eosinophils/100 leukocytes 1 % 0-10 Automated blood basophils/100 leukocytes 0 % 0-10 Blood neutrophils automated count (number/volume) 9.9 10*3 1.8-7.8 Blood lymphocytes automated count (number/volume) 2.5 10*3 1.0-4.0 Blood monocytes automated count (number/volume) 0.8 10*3 0.0- 1.0 Automated eosinophil count 0.1 10*3/uL 0.0-0.3 Automated blood basophil count (count/volume) 0.0 10*3/uL 0.0-0.1 Comprehensive metabolic panel - 06/25/19 05:25 Serum or plasma sodium measurement (moles/volume) 138 mmol/L 135-145 Serum or plasma potassium measurement (moles/volume) 3.9 mmol/L 3.6-5.0 Serum or plasma chloride measurement (moles/volume) 113 mmol/L 98-107 Carbon dioxide 17 mmol/L 21-32 Serum or plasma anion gap determination (moles/volume) 8 mmol/L 5-14 Serum or plasma urea nitrogen measurement (mass/volume) 9 mg/dL 7-18 Serum or plasma creatinine measurement (mass/volume) 0.75 mg/dL 0.60-1.30 Serum or plasma urea nitrogen/creatinine mass ratio 12 NRG Serum or plasma creatinine measurement with calculation of estimated glomerular filtration rate > NRG Serum or plasma glucose measurement (mass/volume) 64 mg/dL 70-105 Serum or plasma calcium measurement (mass/volume) 8.0 mg/dL 8.5-10.1 Serum or plasma total bilirubin measurement (mass/volume) 0.4 mg/dL 0.1-1.0 Serum or plasma alkaline phosphatase measurement (enzymatic activity/volume) 124 U/L 40-136 Serum or plasma aspartate aminotransferase measurement (enzymatic activity/volume) 41 U/L 5-34 Serum or plasma alanine aminotransferase measurement (enzymatic activity/volume) 27 U/L 0-55 Serum or plasma protein measurement (mass/volume) 4.6 g/dL 6.4-8.2 Serum or plasma albumin measurement (mass/volume) 2.5 g/dL 3.2-4.5 CALCIUM CORRECTED 9.2 mg/dL 8.5-10.1 Serum ragweed IgE antibody assay - 06/25/19 05:25 Serum ragweed IgE antibody assay 183 U/L 125-220 Encounters ACCT No. Visit Date/Time Discharge Status Pt. Type Provider Facility Loc./Unit Complaint [id number] 06/29/2019 08:00:00 06/29/2019 23:59:59 CLS Preadmit FREDDIE HOFFMAN DO INDUCTION [id number] 06/24/2019 13:15:00 06/25/2019 19:20:00 DIS Inpatient FREDDIE HOFFMAN DO [facility] LDRP ELEVATED LIVER ENZYMES [id number] 02/25/2019 10:31:00 02/25/2019 23:59:59 CLS Outpatient FREDDIE HOFFMAN DO [facility] RAD 17 WEEKS GESTATION OF [id number] 11/09/2018 12:33:00 11/09/2018 23:59:59 CLS Outpatient KAILYN ARRINGTON MD [facility] LAB UTI, DEHYDRATION [id number] 03/22/2016 14:14:00 03/22/2016 23:59:59 CLS Outpatient ANDRADE SYKES MD [facility] CARD CHEST PAIN SYNDROME,DIZZINESS,PCOS [id number] 03/14/2016 09:53:00 03/14/2016 23:59:59 CLS Outpatient ONEL KAUR, ANDRADE Emanuel [facility] RAD CHEST PAIN SYNDROME,DIZZINESS,PCOS [id number] 03/08/2016 04:03:00 03/08/2016 05:28:00 DIS Emergency EITAN ANAND SPEAR [facility] ER LEFT SHOULDER BLADE PAIN,NAUSEA,SOA [id number] 07/31/2013 12:20:00 10/29/2013 00:01:00 DIS Outpatient SHANIA AJNE DO [facility] LAB [id number] 08/06/2013 06:00:00 08/07/2013 14:35:00 DIS Inpatient YASMIN SPEAR FREDDIE [place] [facility] [id number] 07/31/2013 10:03:00 07/31/2013 12:56:00 DIS Inpatient ADAMSHANIA NUÑEZ DO [facility] [id number] 10/30/2013 00:00:00 Document Registration [id number] 04/17/2012 11:47:00 Document Registration [id number] 03/29/2012 09:37:00 Document Registration [id number] 12/26/2011 14:30:00 Document Registration [id number] 12/21/2011 13:04:00 Document Registration [id number] 11/09/2018 11:52:28 11/09/2018 23:59:59 CLS Outpatient
--- OUTSIDE RECORDS SUMMARY | 2019-07-16 14:07 | XMS REPORT | Continuity of Care Document ---
Author Author [facility] Organization [facility] Address Unknown Phone Unavailable Care Team Providers [facility] Executive Director Name Role Phone FREDDIE HOFFMAN DO PP Insurance Providers Payer Name Policy Number Subscriber Name Relationship [employer] [facility] [place] [id number] Chava Rondon 01 Self / Same As Patient Advance Directives Directive Response Recorded Date Advance Directives N 08/06/13 6:01am Health Care Power of Exhaust Worker N 08/06/13 6:01am Organ Donor Y 08/06/13 6:01am Problems No Known Problems or Medical conditions. Family History History Response Recorded Date/Time Hx Family Cancer N 08/06/13 6:02am Hx Family Cardiac Disorders Y 08/06/13 6:02am Hx Family Hypertension Y PT'S DAD 08/06/13 6:02am Social History History Response Recorded Date/Time Alcohol Use Denies Use 08/06/13 12:20pm Recreational Drug Use N 08/06/13 6:02am Recent Infectious Disease Exposure N 08/06/13 12:20pm Sexually Transmitted Disease N 08/06/13 12:20pm HIV/AIDS N 08/06/13 12:20pm Allergies, Adverse Reactions, Alerts Allergen Type Severity Reaction Last Updated No Known Drug Allergies 03/29/12 Medications Medication Dose Units Route Sig Qty Days Ibuprofen (Motrin) 600 Mg PO Q6H 40 Docusate Sodium (Colace Cap) 100 Mg PO BID 20 Benzocaine/Menthol (Dermoplast [place]) 56 Ml TP UD PRN 1 Ferrous Sulfate (Feosol Tab) 325 Mg PO DAILY 30 Acetaminophen/Hydrocodone Bitart (Lorcet 5/325 Mg) 1 Tab PO Q4H PRN 10 Vits W-Ca,Fe,Fa(<1MG) () 1 Each PO DAILY Oxycodone Hcl/Acetaminophen (Percocet 5-325 Mg Tablet) 1 - 2 Each PO q 4-6hrs as needed Ibuprofen (Motrin) 600 Mg PO q 6hrs as needed Immunizations Name Given Type influenza, split (incl. purified surface antigen) 08/06/13 A Response Recorded Date/Time Status not known Unknown Results Test Date Result Interp. Ref. Range Alanine Aminotransferase (ALT/SGPT) July 31, 2013 10:30am 22 U/L L 30-65 Albumin April 19, 2012 6:05am 1.9 G/DL L 3.4-5.0 Alkaline Phosphatase April 19, 2012 6:05am 214 U/L H 50-136 Aspartate Amino Transf (AST/SGOT) July 31, 2013 10:30am 20 U/L N 15-37 BUN/Creatinine Ratio April 19, 2012 6:05am 9 - Basophils # (Auto) April 20, 2012 5:52am 0.1 10^3/uL N 0.0-0.1 Basophils (%) (Auto) April 20, 2012 5:52am 1 % N 0-10 Blood Urea Nitrogen April 19, 2012 6:05am 9 MG/DL N 7-18 Body Surface Area (Creat Clear) August 01, 2013 11:30am 1.88 - Calcium Level April 19, 2012 6:05am 7.9 MG/DL L 8.5-10.1 Carbon Dioxide Level April 19, 2012 6:05am 20 MMOL/L L 21-32 Chloride Level April 19, 2012 6:05am 107 MMOL/L N 101-110 Creatinine August 01, 2013 11:30am 0.9 MG/DL N 0.6-1.3 Creatinine Clearance August 01, 2013 11:30am 100 ML/MIN N 80-110 Eosinophils # (Auto) April 20, 2012 5:52am 0.2 10^3/uL N 0.0-0.3 Eosinophils (%) (Auto) April 20, 2012 5:52am 2 % N 0-10 Glucose Level April 19, 2012 6:05am 66 MG/DL L 74-106 Group A Streptococcus Screen December 26, 2011 2:40pm NEGATIVE - Hematocrit July 31, 2013 10:30am 34 % L 35-52 Hemoglobin July 31, 2013 10:30am 11.4 G/DL L 11.5-16.0 Lactate Dehydrogenase April 19, 2012 6:05am 212 U/L N 115-218 Lymphocytes # (Auto) April 20, 2012 5:52am 2.9 X 10^3 N 1.0-4.0 Lymphocytes (%) (Auto) April 20, 2012 5:52am 23 % N 12-44 Mean Corpuscular Hemoglobin July 31, 2013 10:30am 30 PG N 25-34 Mean Corpuscular Hemoglobin Concent July 31, 2013 10:30am 34 G/DL N 32-36 Mean Corpuscular Volume July 31, 2013 10:30am 88 FL N 80-99 Mean Platelet Volume July 31, 2013 10:30am 13.2 FL H 7.4-10.4 Monocytes # (Auto) April 20, 2012 5:52am 0.7 X 10^3 N 0.0-1.0 Monocytes (%) (Auto) April 20, 2012 5:52am 5 % N 0-12 Neutrophils # (Auto) April 20, 2012 5:52am 8.6 X 10^3 H 1.8-7.8 Neutrophils (%) (Auto) April 20, 2012 5:52am 69 % N 42-75 Patient Height Inches (Creat Clear) August 01, 2013 11:30am 67 INCHES - Patient Weight Pounds (Creat Clear) August 01, 2013 11:30am 168 LBS - Platelet Count July 31, 2013 10:30am 200 10^3/uL N 130-400 Potassium Level April 19, 2012 6:05am 3.9 MMOL/L N 3.6-5.0 Red Blood Count July 31, 2013 10:30am 3.81 10^6/uL L 4.35-5.85 Red Cell Distribution Width July 31, 2013 10:30am 12.7 % N 10.0-14.5 Sodium Level April 19, 2012 6:05am 137 MMOL/L N 135-145 Total Bilirubin April 19, 2012 6:05am 0.1 MG/DL N 0.0-1.0 Total Protein April 19, 2012 6:05am 5.1 G/DL L 6.4-8.2 Uric Acid July 31, 2013 10:30am 4.1 MG/DL N 2.6-7.2 Urine Bacteria April 17, 2012 12:00pm FEW H - Urine Bilirubin April 17, 2012 12:00pm NEGATIVE - Urine Casts April 17, 2012 12:00pm NONE - Urine Clarity April 17, 2012 12:00pm CLEAR - Urine Collection Time August 01, 2013 11:30am 24 HRS - Urine Color April 17, 2012 12:00pm YELLOW - Urine Creatinine August 01, 2013 11:30am 104.3 MG/DL N 30-125 Urine Creatinine 24 Hour August 01, 2013 11:30am 1408 MG/24H N 800-1700 Urine Crystals April 17, 2012 12:00pm NONE - Urine Culture Indicated April 17, 2012 12:00pm YES - Urine Glucose (UA) April 17, 2012 12:00pm NEGATIVE - Urine Ketones April 17, 2012 12:00pm NEGATIVE - Urine Leukocyte Esterase April 17, 2012 12:00pm 1+ H - Urine Mucus April 17, 2012 12:00pm NEGATIVE - Urine Nitrite April 17, 2012 12:00pm NEGATIVE - Urine Protein April 17, 2012 12:00pm 1+ H - Urine RBC April 17, 2012 12:00pm RARE /HPF - Urine Specific [place] April 17, 2012 12:00pm 1.020 - Urine Squamous Epithelial Cells April 17, 2012 12:00pm 25-50 H - Urine Total Protein 24 Hour August 01, 2013 11:30am 334.8 MG/24H H 0-149 Urine Total Volume August 01, 2013 11:30am 1350 ML - Urine Urobilinogen April 17, 2012 12:00pm NORMAL MG/DL - Urine WBC April 17, 2012 12:00pm 5-10 /HPF H - Urine pH April 17, 2012 12:00pm 6.5 - White Blood Count July 31, 2013 10:30am 10.1 10^3/uL N 4.3-11.0 Urine Total Protein mg/dL August 01, 2013 11:30am 24.8 MG/DL H 6-12 Urine RBC (Auto) April 17, 2012 12:00pm NEGATIVE - Procedures Procedure Code Date REPAIR OB LACERATION NEC 75.69 04/18/12 MEDICAL INDUCTION LABOR 73.4 04/17/12 Throat Culture 12/26/11 Urine Culture 07/31/13 Encounters Encounter Location Date/Time Discharged Inpatient [facility] 08/06/13 6:00am
== END 2019-06-25 19:20 | disposition home or self-care (01) | DRG 807 ==
LOC: LDRP 10:01 → WSo 10:01 → LDRP 13:15
PROVIDERS: ADMIT Obstetrics & Gynecology; ATTEND Obstetrics & Gynecology
PROC: 10E0XZZ Delivery of Products of Conception, External Approach (ICD-10-PCS; principal; 2019-06-24)
PROC: 10907ZC Drainage of Amniotic Fluid, Therapeutic from Products of Conception, Via Natural or Artificial Opening (ICD-10-PCS; 2019-06-24)
DX: O14.94 Unspecified pre-eclampsia, complicating childbirth (principal); O99.284 Endocrine, nutritional and metabolic diseases complicating childbirth; E28.2 Polycystic ovarian syndrome; Z3A.38 38 weeks gestation of pregnancy; Z37.0 Single live birth
CPT/HCPCS: 36415; 80053; 83615; 84550; 85025